=== PATIENT | male | born 1995 | race Caucasian/White ===

== ENCOUNTER 2018-09-04 18:12 | Emergency (ER) | payer SELFPAY ==
[~2018-09-04] VITALS: Ht 180.3 cm; Wt 60.0 kg
[2018-09-04] MEDS ORDERED: LORazepam 2 MG/ML, 1ML ONE (18:28)
[2018-09-04 18:57] LABS: BASOPHILS # (AUTO) 0.01 x10^3/uL (0-0.1); BASOPHILS % (AUTO) 0 % (0-1); EOSINOPHILS % (AUTO) 3 % (1-7); LYMPHOCYTES # (AUTO) 0.81 x10^3/uL (1-3.4); LYMPHOCYTES % (AUTO) 21 % (22-44); MD NO; MEAN CORPUSCULAR HEMOGLOBIN 35.3 pg (27.5-34.5); MEAN CORPUSCULAR HGB CONC 35.4 g/dL (33.2-36.2); MEAN CORPUSCULAR VOLUME 99.8 fL (81-97); MEAN PLATELET VOLUME 8.7 fL (7.4-10.4); MONOCYTES # (AUTO) 0.15 x10^3/uL (0.2-0.8); MONOCYTES % (AUTO) 4 % (2-9); NEUTROPHILS # (AUTO) 2.79 x10^3/uL (1.8-6.8); NEUTROPHILS % (AUTO) 72 % (42-75); PLATELET COUNT 199 x10^3/uL (130-400); RED BLOOD COUNT 4.47 x10^6/uL (4.38-5.82); RED CELL DISTRIBUTION WIDTH 12.4 % (9.4-14.8)
[2018-09-04 19:08] LABS: ALBUMIN 4.2 g/dL (3.4-5.0); ANION GAP 7 mmol/L (5-15); CALCIUM 8.3 mg/dL (8.5-10.1); CHLORIDE 107 mmol/L (98-107)
[2018-09-04 19:11] LABS: ALANINE AMINOTRANSFERASE 27 U/L (12-78); ALKALINE PHOSPHATASE 171 U/L (45-117); BILIRUBIN,TOTAL 0.4 mg/dL (0.2-1.0); CREATININE 1.05 mg/dL (0.7-1.3); TOTAL PROTEIN 6.9 g/dL (6.4-8.2)
[2018-09-04] MEDS ORDERED: BACITRACIN ZINC OINT 500U/GM, 0.9 GM ONE (20:39)
[2018-09-04 22:35] VITALS: BP 110/60
--- NOTE | 2018-09-04 22:36 | NUR ---
Patient/Caregiver given discharge instructions and they have confirmed that they understand the instructions. Patient ambulatory with steady gait.
== END 2018-09-04 22:37 | disposition home or self-care (01) ==
LOC: ED 21:52
DX: R56.9 Unspecified convulsions (principal)
CPT/HCPCS: 36415; 71045; 80053; 83605; 85025; 93005; 99284

== ENCOUNTER 2018-11-19 17:20 | Emergency (ER) | payer MEDICAID ==
[~2018-11-19] VITALS: Ht 180.3 cm; Wt 60.0 kg
--- NOTE | 2018-11-19 17:59 | NUR ---
SEE TRIAGE NOTE. PT PLACED ON HEART MONITOR, BP CUFF, PULSE OX. SEIZURE PADS IN PLACE, PT AWARE OF POC. CALL LIGHT WITHIN REACH, BED IN LOW POSITION.
--- NOTE | 2018-11-19 18:58 | NUR ---
BS REPORT GIVEN, TRANSFER OF CARE AT THIS TIME.
--- NOTE | 2018-11-19 19:24 | NUR ---
TASK RN: Discharge instructions discussed with patient including when to return to emergency department, patient verbalizes understanding. Patient dresses independently, ambulates with steady gait.
[2018-11-19 19:25] VITALS: BP 110/74
[2018-11-19] MEDS ORDERED: LEVE100020 PO (21:29)
[2018-11-19] MEDS ORDERED: keppra PO (21:29)
[2018-11-19] MEDS ORDERED: LACO150T PO (21:29)
[2018-11-19] MEDS ORDERED: ESLI200T PO (21:29)
== END 2018-11-19 19:28 | disposition home or self-care (01) ==
LOC: ED 19:22
DX: G40.919 Epilepsy, unspecified, intractable, without status epilepticus (principal)
CPT/HCPCS: 99283

== ENCOUNTER 2018-11-19 20:17 | Emergency (ER) | payer MEDICAID ==
[~2018-11-19] VITALS: Ht 177.8 cm; Wt 64.0 kg
[2018-11-19] MEDS ORDERED: LORazepam 1MG TABLET ONE (20:40)
--- NOTE | 2018-11-19 20:46 | NUR ---
PT WITH IV PLACED BLOOD TO LAB AND PT MEDICATED ORDERED. PT TO BE ADMIT AND A CALL TO HIS MOTHER WAS MADE AT PT'S REQUEST.
--- NOTE | 2018-11-19 20:47 | NUR ---
MOTHER LAKSHMI HERNANDEZ
--- NOTE | 2018-11-19 20:57 | NUR ---
SBAR report received from Last hassan RN. Pt resting on gurney, seizure pads in place, pt on all monitors.
[2018-11-19] MEDS ORDERED: SODIUM CHLORIDE FLUSH 10ML SYR IVF ONE (21:00)
[2018-11-19] MEDS ORDERED: LEVETIRACETAM 1,000 MG in SODIUM CHLORIDE 0.9% 100 ML IV ONE (21:00)
[2018-11-19] MEDS ORDERED: LORazepam 1MG TABLET PO ONE (21:00)
[2018-11-19 21:03] LABS: BASOPHILS # (AUTO) 0.03 x10^3/uL (0-0.1); BASOPHILS % (AUTO) 1 % (0-1); EOSINOPHILS # (AUTO) 0.42 x10^3/uL (0-0.4); EOSINOPHILS % (AUTO) 7 % (1-7); LYMPHOCYTES # (AUTO) 1.97 x10^3/uL (1-3.4); LYMPHOCYTES % (AUTO) 33 % (22-44); MD NO; MEAN CORPUSCULAR HGB CONC 35.2 g/dL (33.2-36.2); MEAN CORPUSCULAR VOLUME 99.6 fL (81-97); MEAN PLATELET VOLUME 8.2 fL (7.4-10.4); MONOCYTES # (AUTO) 0.34 x10^3/uL (0.2-0.8); MONOCYTES % (AUTO) 6 % (2-9); NEUTROPHILS # (AUTO) 3.17 x10^3/uL (1.8-6.8); NEUTROPHILS % (AUTO) 53 % (42-75); PLATELET COUNT 185 x10^3/uL (130-400); RED BLOOD COUNT 4.44 x10^6/uL (4.38-5.82); RED CELL DISTRIBUTION WIDTH 12.9 % (9.4-14.8)
--- NOTE | 2018-11-19 21:06 | NUR ---
Pt to imaging, with tech, via gusaul.
[2018-11-19 21:09] LABS: ALBUMIN 4.3 g/dL (3.4-5.0); ANION GAP 6 mmol/L (5-15); CALCIUM 8.8 mg/dL (8.5-10.1); CHLORIDE 110 mmol/L (98-107); CREATININE 0.82 mg/dL (0.7-1.3)
--- NOTE | 2018-11-19 21:23 | NUR ---
Pt in room and back on monitors. Pt's mom at bedside now.
[2018-11-19] MEDS ORDERED: LACO150T PO (21:29)
[2018-11-19] MEDS ORDERED: ESLI200T PO (21:29)
[2018-11-19] MEDS ORDERED: LEVE100020 PO (21:29)
[2018-11-19] MEDS ORDERED: keppra PO (21:29)
--- NOTE | 2018-11-19 22:33 | NUR ---
Telephone SBAR report given to RNElizabeth. Pt and mother made aware of new room assignment.
--- NOTE | 2018-11-19 22:35 | NUR ---
[facility] at bedside to evaluate pt for admission.
--- NOTE | 2018-11-19 23:22 | NUR ---
TP: PT LEAVING AMA AFTER TALKING TO [facility]. AMA PAPERS SIGNED. PT LEAVING WITH FAMILY. PT AWARE OF RISKS. PIV PLACED. ALL QUESTIONS ANSWERED.
[2018-11-19 23:28] VITALS: BP 112/76
== END 2018-11-19 23:31 | disposition left against medical advice (07) ==
LOC: ED 22:06 → UNDOADMIN 22:10 → EDIP 22:10 → ED 23:31
DX: G40.909 Epilepsy, unspecified, not intractable, without status epilepticus (principal); F17.200 Nicotine dependence, unspecified, uncomplicated
CPT/HCPCS: 36415; 70450; 80048; 80307; 82040; 85025; 96365; 99284; J1953